=== PATIENT | female | born 1930 | race Caucasian/White ===

== ENCOUNTER 2017-11-09 19:57 | Observation (INO) | payer MEDICARE, BC ==
[2017-11-09] MEDS ORDERED: Ondansetron 4 MG/2 ML SDV IVPUSH ONE (20:56)
[2017-11-09] MEDS ORDERED: Sodium Chloride 0.9% 1,000 ML IV ONE (20:56)
--- NOTE | 2017-11-09 20:59 | EDM.PDOC ---
<May Thompson - Last Filed: 11/09/17 21:06> ED HPI GENERAL MEDICAL PROBLEM - General Chief Complaint: Gastrointestinal Problem Stated Complaint: VOMITING Time Seen by Provider: 11/09/17 20:50 Source of Information: Reports: Patient History Limitations: Reports: No Limitations - History of Present Illness INITIAL COMMENTS - FREE TEXT/NARRATIVE: HISTORY AND PHYSICAL: History of present illness: Patient comes to the emergency room complaining of nausea vomiting and diarrhea since early this afternoon. States that she worked out at [employer] this morning and ate lunch at the [employer]. About 1:30 this afternoon, 2 hours after eating, she started feeling nauseous and experiencing vomiting, and diarrhea later developed. She's not had fever or chills. She states that she feels poorly and is lacking energy. Has not eaten anything since this afternoon. She denies fever and chills. She had a cold a couple of weeks ago which completely resolved except a little fullness in her right ear. No runny nose sore throat or chest congestion. She is not coughing. She has no blood in her vomit or stools. Discomfort to her lower abdomen that feels like period cramps. Denies burning with urination and urinary frequency. No swelling to her feet or lower legs. She states that she is otherwise healthy. No history of heart attack or stroke. She has no other complaints or concerns at this time. She presents to the ER with her son. Is a good historian Review of systems: As per history of present illness and below otherwise all systems reviewed and negative. Past medical history: As per history of present illness and as reviewed below otherwise noncontributory. Surgical history: As per history of present illness and as reviewed below otherwise noncontributory. Social history: No reported history of drug or alcohol abuse. Family history: As per history of present illness and as reviewed below otherwise noncontributory. Physical exam: HEENT: Atraumatic, normocephalic. TMs are pearly bishop and without erythema bilaterally. Oral mucous membranes are pink but dry. Neck is supple no lymphadenopathy. Throat is clear. Lungs: Clear to auscultation, breath sounds equal bilaterally. No wheezing crackles or rales. Heart: S1S2, regular, negative for clicks, rubs, or JVD. Abdomen: Bowel sounds are normoactive throughout. Abdomen is soft and nondistended. She is tender over her suprapubic area. Soft, nondistended, nontender. Negative for masses guarding or rebound. She is tender over her low back. Pelvis: Stable nontender. Genitourinary: Deferred. Rectal: Deferred. Extremities: Hammertoe and varicosities to her feet present bilaterally. No swelling or cyanosis bilaterally. Neurovascular unremarkable. Neuro: Awake, alert, oriented. Motor and sensory unremarkable throughout. Exam nonfocal. Diagnostics: [CBC, CMP, UA, EKG] Therapeutics: [1 L normal saline at 125 miles per hour, Zofran 4 mg IV] Impression: [] Plan: [] Definitive disposition and diagnosis as appropriate pending reevaluation and review of above. - Related Data Allergies Allergy/AdvReac Type Severity Reaction Status Date / Time No Known Allergies Allergy Verified 08/23/15 09:24 Home Meds: Home Meds Verapamil HCl [Verapamil Sr] 120 mg PO ACBREAKFAST 11/18/14 [History] Multivitamin [Multivitamins] 1 cap PO DAILY 04/16/15 [History] Ubidecarenone [Co Q-10] 200 mg PO DAILY 04/16/15 [History] Dorzolamide HCl/Timolol Maleat [Dorzolamide-Timolol Eye Drops] 1 drop EYELF BID 08/23/15 [History] Travoprost [Travatan Z 0.004% Ophth Soln] 1 drop EYELF ASDIRECTED 08/23/15 [ History] Lutein/Minerals/Vit A,C & E [Ocuvite] 1 tab PO DAILY 08/24/15 [History] Past Medical History Other HEENT History: left eye bleeding Other Cardiovascular History: palpations Other Genitourinary History: History of annual UTI's Other OB/BYN History: hysterectomy Other Musculoskeletal History: Arthritic "wore out hip" RIGHT Hope to have it replaced this winter Other Oncologic History: Skin cancer treatment 20 yrs ago [place] "no reoccurence " Other Dermatologic History: History Acne Social & Family History - Tobacco Use Smoking Status *Q: Former Smoker Years of Tobacco use: 3 Second Hand Smoke Exposure: No - Alcohol Use Days Per Week of Alcohol Use: 0 - Recreational Drug Use Recreational Drug Use: No Drug Use in Last 12 Months: No Course - Vital Signs Last Recorded V/S: Last Vital Signs Temp 35.4 C 12/11/17 20:29 Pulse 83 11/09/17 20:29 Resp 16 11/09/17 20:29 BP 144/71 H 11/09/17 20:29 Pulse Ox 98 11/09/17 20:29 - Orders/Labs/Meds Orders: Active Orders 24 hr Category Date Time Status Patient Status [ADT] Stat ADT 11/09/17 23:32 Ordered EKG Documentation Completion [RC] STAT Care 11/09/17 20:47 Active Sodium Chloride 0.9% [Normal Saline] 1,000 ml Med 11/09/17 20:56 Active IV STAT Medication Orders Sodium Chloride (Normal Saline) 1,000 mls @ 125 mls/hr IV STAT ONE Stop: 11/10/17 04:55 Last Infusion: 11/09/17 22:30 Dose: 999 mls/hr Admin: 11/09/17 21:58 Dose: 125 mls/hr Labs: Laboratory Tests 11/09/17 11/09/17 11/09/17 Range/Units 21:50 21:50 22:55 WBC 11.54 H (4.0-11.0) K/uL RBC 4.52 (4.30-5.90) M/uL Hgb 13.6 (12.0-16.0) g/dL Hct 40.6 (36.0-46.0) % MCV 89.8 (80.0-98.0) fL MCH 30.1 (27.0-32.0) pg MCHC 33.5 (31.0-37.0) g/dL RDW Std Deviation 43.4 (28.0-62.0) fl RDW Coeff of Rodolfo 13 (11.0-15.0) % Plt Count 200 (150-400) K/uL MPV 9.30 (7.40-12.00) fL Add Manual Diff YES Neutrophils % (Manual) 83 H (48.0-80.0) % Band Neutrophils % 10 % Lymphocytes % (Manual) 4 L (16.0-40.0) % Monocytes % (Manual) 3 (0.0-15.0) % Nucleated RBC % 0.0 /100WBC Absolute Seg Neuts 9.6 H (1.4-5.7) Band Neutrophils # 1.2 Lymphocytes # (Manual) 0.5 L (0.6-2.4) Monocytes # (Manual) 0.3 (0.0-0.8) Nucleated RBCs # 0 K/uL Sodium 140 (136-146) mmol/L Potassium 3.9 (3.5-5.1) mmol/L Chloride 108 (98-110) mmol/L Carbon Dioxide 19 L (21-31) mmol/L BUN 33 H (6.0-23.0) mg/dL Creatinine 1.3 (0.6-1.5) mg/dL Est Cr Clr Drug Dosing 27.32 mL/min Estimated GFR (MDRD) 38.9 ml/min Glucose 187 H (60-110) mg/dL Calcium 9.0 (8.8-10.8) mg/dL Total Bilirubin 0.6 (0.1-1.5) mg/dL AST 15 (5-40) IU/L ALT 11 (8-54) IU/L Alkaline Phosphatase 56 (40-150) Total Protein 7.6 (6.0-8.0) g/dL Albumin 4.0 (3.4-4.8) g/dL Globulin 3.6 H (2.0-3.5) g/dL Albumin/Globulin Ratio 1.1 L (1.3-2.8) Urine Color YELLOW Urine Appearance CLEAR Urine pH 5.5 (5.0-8.0) Ur Specific [place] >= 1.030 (1.001-1.035) Urine Protein NEGATIVE (NEGATIVE) mg/dL Urine Glucose (UA) NEGATIVE (NEGATIVE) mg/dL Urine Ketones 15 H (NEGATIVE) mg/dL Urine Occult Blood NEGATIVE (NEGATIVE) Urine Nitrite NEGATIVE (NEGATIVE) Urine Bilirubin NEGATIVE (NEGATIVE) Urine Urobilinogen 0.2 (<2.0) EU/dL Ur Leukocyte Esterase TRACE (NEGATIVE) Urine RBC 0-2 (0-2/HPF) Urine WBC 0-1 (0-5/HPF) Ur Epithelial Cells FEW (NONE-FEW) Urine Bacteria FEW (NEGATIVE) Urinalysis Comment Meds: Medications Generic Name Dose Route Start Last Admin Trade Name Freq PRN Reason Stop Dose Admin Sodium Chloride 1,000 mls @ 125 mls/hr 11/09/17 20:56 11/09/17 22:30 Normal Saline IV 11/10/17 04:55 999 mls/hr STAT ONE Infusion Discontinued Medications Generic Name Dose Route Start Last Admin Trade Name Ari PRN Reason Stop Dose Admin Ondansetron HCl 4 mg 11/09/17 20:56 11/09/17 21:58 Zofran IVPUSH 11/09/17 20:57 4 mg ONETIME ONE Administration Departure - Departure Disposition: Refer to Observation Clinical Impression: Vomiting, Diarrhea, Dehydration - Discharge Information Referrals: Yobany Cabrera MD [Primary Care Provider] - Forms: ED Department Discharge - My Orders Last 24 Hours: My Active Orders 11/09/17 23:32 Patient Status [ADT] Stat - Assessment/Plan Last 24 Hours: My Active Orders 11/09/17 23:32 Patient Status [ADT] Stat <Barbara Gaxiola - Last Filed: 11/09/17 23:34> ED HPI GENERAL MEDICAL PROBLEM - History of Present Illness INITIAL COMMENTS - FREE TEXT/NARRATIVE: This is Dr. Gaxiola dictating an addendum note as I have assumed care of this case at 10 PM. I agree with history and physical as above and this may be all attributable to a food trigger to cause the nausea vomiting and diarrhea but her labs are concerning for an elevated BUN/creatinine and a specific gravity that is also elevated. Patient on my evaluation does not have any abdominal tenderness and I discussed with her and her family at bedside TESTING results. I've given her a fluid bolus and she has completed that which is enabled her to give the urine sample. She is no longer nauseated and I given her ice chips. I discussed with her observation admission due to her age and comorbidities and level of dehydration and she is agreeable. I will discuss this case with our hospitalist Dr. Sunshine [id number]: Case discussed with our hospitalist Dr. Sunshine who accepts the patient for observation admission. Impression: Vomiting and diarrhea with dehydration in the elderly patient ED ROS GENERAL - Review of Systems Review Of Systems: ROS reveals no pertinent complaints other than HPI. ED EXAM, GI/ABD - Physical Exam Exam: See Below (See dictation) Departure - Departure Time of Disposition: 23:34 Condition: Good - My Orders Last 24 Hours: My Active Orders 11/09/17 23:32 Patient Status [ADT] Stat - Assessment/Plan Last 24 Hours: My Active Orders 11/09/17 23:32 Patient Status [ADT] Stat
[2017-11-09] MEDS ORDERED: Non-Formulary Medication 1 Each (Travoprost [Travatan Z 0.004% Ophth Soln] 1 DROP) EYELF SCH (23:45)
[2017-11-09] MEDS ORDERED: Ondansetron 4 MG/2 ML SDV IVPUSH PRN (23:46)
[2017-11-09] MEDS ORDERED: Acetaminophen 325 MG Tab PO PRN (23:46)
[2017-11-10] MEDS ORDERED: Sodium Chloride 0.9% 1,000 ML IV SCH (01:00)
[2017-11-10] MEDS ORDERED: VERAPAMIL HCL 120 MG PO SCH (07:30)
--- NOTE | 2017-11-10 08:06 | PCM.HP ---
<Ivette Fairbanks - Last Filed: 11/10/17 10:43> H&P History of Present Illness - General Date of Service: 11/10/17 Admit Problem/Dx: Admission Diagnosis/Problem Admission Diagnosis/Problem Dehydration - History of Present Illness Initial Comments - Free Text/Narative: 86 yo female admitted for gastroenteritis. 86 Y/O female admitted for complaints of vomiting and diarrhea that started at approximately 3 pm yesterday afternoon. She ate at the [employer] for lunch around noon. She had salad, fish, fruit. When she got home, She reported feeling weak and had called her son to bring her to the hospital after she spoke with her daughter who is a nurse. She had worked out at [employer] in the morning and had a positive sick contact who had similar symptoms. [place] She stated she "sometimes" uses a cane when she walks to the barn in the mornings due to slippery conditions. Headache Pain Score (Numeric/FACES): 3 - Related Data Allergies/Adverse Reactions: Allergies Allergy/AdvReac Type Severity Reaction Status Date / Time No Known Allergies Allergy Verified 11/10/17 00:42 Home Medications: Home Meds Verapamil HCl [Verapamil Sr] 120 mg PO ACBREAKFAST 11/18/14 [History] Multivitamin [Multivitamins] 1 cap PO DAILY 04/16/15 [History] Ubidecarenone [Co Q-10] 200 mg PO DAILY 04/16/15 [History] Travoprost [Travatan Z 0.004% Ophth Soln] 1 drop EYELF BEDTIME 08/23/15 [History ] Lutein/Minerals/Vit A,C & E [Ocuvite] 1 tab PO DAILY 08/24/15 [History] Garlic [Garlique] 1 tab PO DAILY 11/10/17 [History] Past Medical History HEENT History: Reports: Macular Degeneration Other HEENT History: left eye bleeding Other Cardiovascular History: palpations Genitourinary History: Reports: UTI, Recurrent Other Genitourinary History: History of annual UTI's Other OB/BYN History: hysterectomy Musculoskeletal History: Reports: Arthritis, Other (See Below) Other Musculoskeletal History: Arthritic "wore out hip" RIGHT Hope to have it replaced this winter. injured ligaments medial right knee. Other Oncologic History: Skin cancer treatment 20 yrs ago [place] "no reoccurence " Other Dermatologic History: History Acne - Infectious Disease History Infectious Disease History: Reports: Chicken Pox, Measles - Past Surgical History Female Surgical History: Reports: Hysterectomy Musculoskeletal Surgical History: Reports: Hip Replacement Social & Family History - Family History Family Medical History: Noncontributory - Tobacco Use Smoking Status *Q: Former Smoker Years of Tobacco use: 5 Packs/Tins Daily: 0.2 Used Tobacco, but Quit: Yes Month Tobacco Last Used: 1955 Tobacco Use Comment: has not smoked since 1955 Second Hand Smoke Exposure: No - Caffeine Use Caffeine Use: Reports: None - Alcohol Use Days Per Week of Alcohol Use: 0 - Recreational Drug Use Recreational Drug Use: No Drug Use in Last 12 Months: No H&P Review of Systems - Review of Systems: Review Of Systems: See Below General: Reports: No Symptoms HEENT: Reports: No Symptoms Pulmonary: Reports: No Symptoms Cardiovascular: Reports: No Symptoms Gastrointestinal: Reports: Abdominal Pain (improved), Diarrhea Genitourinary: Reports: No Symptoms Musculoskeletal: Reports: No Symptoms Skin: Reports: No Symptoms Psychiatric: Reports: No Symptoms Neurological: Reports: No Symptoms Hematologic/Lymphatic: Reports: No Symptoms Immunologic: Reports: No Symptoms Exam - Exam Exam: See Below - Vital Signs Vital Signs: Last Vital Signs Temp 99.0 F 11/10/17 06:00 Pulse 66 11/10/17 06:00 Resp 19 11/10/17 06:00 BP 130/62 11/10/17 06:00 Pulse Ox 93 L 11/10/17 06:00 Weight: 66.996 kg - Exam General: Alert, Oriented HEENT: Conjunctiva Clear, EOMI Neck: Supple, Trachea Midline Lungs: Clear to Auscultation, Normal Respiratory Effort Cardiovascular: Regular Rate, Regular Rhythm GI/Abdominal Exam: Normal Bowel Sounds, Soft (Female) Exam: Other (external and internal hemorrhoids present with bright red blood. ) Rectal (Female) Exam: Bloody Stool, Hemorrhoids Back Exam: Normal Inspection Extremities: Normal Inspection Skin: Warm, Dry, Intact Neuro Extensive - Mental Status: Alert, Oriented x3, Normal Mood/Affect Psychiatric: Alert, Normal Affect, Normal Mood - Patient Data Lab Results Last 24 hrs: Laboratory Results - last 24 hr 11/10/17 11/10/17 Range/Units 05:06 05:06 WBC 6.82 (4.0-11.0) K/uL RBC 3.94 L (4.30-5.90) M/uL Hgb 11.7 L (12.0-16.0) g/dL Hct 35.6 L (36.0-46.0) % MCV 90.4 (80.0-98.0) fL MCH 29.7 (27.0-32.0) pg MCHC 32.9 (31.0-37.0) g/dL RDW Std Deviation 44.1 (28.0-62.0) fl RDW Coeff of Rodolfo 13 (11.0-15.0) % Plt Count 184 (150-400) K/uL MPV 9.40 (7.40-12.00) fL Neut % (Auto) 79.4 (48.0-80.0) % Lymph % (Auto) 12.8 L (16.0-40.0) % [place] % (Auto) 7.6 (0.0-15.0) % Eos % (Auto) 0.1 (0.0-7.0) % Baso % (Auto) 0.1 (0.0-1.5) % Neut # (Auto) 5.4 (1.4-5.7) K/uL Lymph # (Auto) 0.9 (0.6-2.4) K/uL [place] # (Auto) 0.5 (0.0-0.8) K/uL Eos # (Auto) 0.0 (0.0-0.7) K/uL Baso # (Auto) 0.0 (0.0-0.1) K/uL Nucleated RBC % 0.0 /100WBC Nucleated RBCs # 0 K/uL Sodium 142 (136-146) mmol/L Potassium 3.7 (3.5-5.1) mmol/L Chloride 114 H (98-110) mmol/L Carbon Dioxide 19 L (21-31) mmol/L BUN 30 H (6.0-23.0) mg/dL Creatinine 1.1 (0.6-1.5) mg/dL Est Cr Clr Drug Dosing 32.29 mL/min Estimated GFR (MDRD) 47.2 ml/min Glucose 114 H (60-110) mg/dL Calcium 8.0 L (8.8-10.8) mg/dL Result Diagrams: 11/10/17 05:06 11/10/17 05:06 *Q Meaningful Use (ADM) - VTE *Q VTE Criteria *Q: - Stroke *Q Stroke Criteria *Q: - AMI *Q AMI Criteria *Q: Problem List Initiated/Reviewed/Updated: Yes Orders Last 24hrs: Active Orders 24 hr Category Date Time Status Antiembolic Devices [RC] PER UNIT ROUTINE Care 11/09/17 23:48 Active Oxygen Therapy [RC] PRN Care 11/09/17 23:47 Active Up ad Beba [RC] ASDIRECTED Care 11/09/17 23:46 Active VTE/DVT Education [RC] PER UNIT ROUTINE Care 11/09/17 23:47 Active Vital Signs [RC] Q4H Care 11/09/17 23:47 Active Acetaminophen [Tylenol] Med 11/09/17 23:46 Active 650 mg PO Q4H PRN Dorzolamide/Timolol [Cosopt 2%-0.5% Ophth Soln] Med 11/10/17 09:00 Active 0 ml EYELF BID Ondansetron [Zofran] Med 11/09/17 23:46 Active 4 mg IVPUSH Q4H PRN Sodium Chloride 0.9% [Normal Saline] 1,000 ml Med 11/10/17 01:00 Active IV ASDIRECTED Travoprost [Travatan Z 0.004% Ophth Soln] Med 11/09/17 23:45 Active 1 drop EYELF ASDIRECTED Verapamil HCl [Verapamil Sr] Med 11/10/17 07:30 Active 120 mg PO ACBREAKFAST Sequential Compression Device [OM.PC] Per Unit Routine Oth 11/09/17 23:47 Ordered Resuscitation Status Routine Resus Stat 11/09/17 23:46 Ordered Medication Orders Acetaminophen (Tylenol) 650 mg PO Q4H PRN PRN Reason: Pain (Mild 1-3)/fever Dorzolamide/Timolol (Cosopt 2%-0.5% Ophth Soln) 0 ml EYELF BID DONNA Sodium Chloride (Normal Saline) 1,000 mls @ 100 mls/hr IV ASDIRECTED DONNA Last Admin: 11/10/17 02:20 Dose: 100 mls/hr Non-Formulary Medication (Travoprost [Travatan Z 0.004% Ophth Soln]) 1 drop EYELF ASDIRECTED DONNA Non-Formulary Medication (Verapamil Hcl [Verapamil Sr]) 120 mg PO ACBREAKFAST DONNA Ondansetron HCl (Zofran) 4 mg IVPUSH Q4H PRN PRN Reason: Nausea Assessment/Plan Comment:: 86 yo female admitted for gastroenteritis Abdominal pain: improved. Nausea: resolved Diarrhea: improving. There are bleeding hemorrhoids present. Diet tolerating full liquid diet. advance diet Discharge Summary 86 yo female admitted for gastroenteritis. She was hydrated with fluids. Her nausea and vomitting have subsided. She did not have elevated WBC or fever.She still some loose stools with BRBPR. There were internal and external hemorrhoids noted on physical exam. She is continue full liquid diet for another day then BRAT diet. She may use preparation H and tucks pads for hemorrhoids. She is to follow up PCP within a week. <Tyrell Sunshine - Last Filed: 11/11/17 21:50> H&P History of Present Illness - General Admit Problem/Dx: Admission Diagnosis/Problem Admission Diagnosis/Problem Dehydration Exam - Vital Signs Vital Signs: Last Vital Signs Temp 36.4 C 11/10/17 09:17 Pulse 67 11/10/17 09:17 Resp 16 11/10/17 09:17 BP 134/62 11/10/17 09:17 Pulse Ox 98 11/10/17 09:17 - Patient Data Result Diagrams: 11/10/17 05:06 11/10/17 05:06 *Q Meaningful Use (ADM) - VTE *Q VTE Criteria *Q: - Stroke *Q Stroke Criteria *Q: - AMI *Q AMI Criteria *Q: - Free Text/Narrative Note: I have examined the patient. I have discussed findings and treatment plan with resident. I agree with the assessment and plan outlined in the following resident's note.
[2017-11-10] MEDS ORDERED: Verapamil 240 MG Tab.ER PO SCH (08:53)
[2017-11-10] MEDS ORDERED: Dorzolamide/Timolol 2%-0.5% Ophth Soln 10 ML Bottle EYELF SCH (09:00)
[2017-11-10 09:18] VITALS: BP 134/62
[2017-11-10] MEDS ORDERED: Acetaminophen 325 MG Tab PO ONE (10:04)
== END 2017-11-10 11:23 | disposition home or self-care (01) ==
LOC: MW.ED 19:57 → MW.MS 23:32
PROVIDERS: ADMIT Internal Medicine; ATTEND Internal Medicine
DX: K52.9 Noninfective gastroenteritis and colitis, unspecified (principal); H35.30 Unspecified macular degeneration; M19.90 Unspecified osteoarthritis, unspecified site; K64.8 Other hemorrhoids; K64.4 Residual hemorrhoidal skin tags; Z79.899 Other long term (current) drug therapy; Z85.828 Personal history of other malignant neoplasm of skin; Z87.891 Personal history of nicotine dependence
CPT/HCPCS: 36415; 80048; 80053; 81001; 85025; 93005; 96361; 96374; 99285; A9270; G0378; J2405; J7040; 99283

== ENCOUNTER 2019-03-08 11:47 | Inpatient (IN) | payer MEDICARE, BC ==
--- NOTE | 2019-03-08 12:25 | EDM.PDOC ---
ED HPI GENERAL MEDICAL PROBLEM - General Chief Complaint: Neurological Problem Stated Complaint: AMB Time Seen by Provider: 03/08/19 12:09 Source of Information: Reports: Patient, EMS, Family, Other (Primary provider, Yobany Cabrera) History Limitations: Reports: Altered Mental Status - History of Present Illness INITIAL COMMENTS - FREE TEXT/NARRATIVE: Presents via EMS. She lives at an assisted living facility and the staff there noticed what they described as seizure activity and the patient became obtunded. By the time EMS arrived she was "post-ictal" but awake and responding verbally, albeit confused. 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 She is currently on dexamethasone with a dose increase due today. She is a DNR status. Her primary provider, Dr. Yobany Cabrera came over and visited with the patient and her family. - Related Data Allergies Allergy/AdvReac Type Severity Reaction Status Date / Time No Known Allergies Allergy Verified 11/10/17 00:42 Home Meds: Home Meds Verapamil HCl [Verapamil Sr] 120 mg PO ACBREAKFAST 11/18/14 [History] Travoprost [Travatan Z 0.004% Ophth Soln] 1 drop EYELF BEDTIME 08/23/15 [History ] Lutein/Minerals/Vit A,C & E [Ocuvite] 1 tab PO DAILY 08/24/15 [History] Dorzolamide HCl/Timolol Maleat [Dorzolamide-Timolol Eye Drops] 1 drop EYEBOTH BID 11/27/18 [History] Acetaminophen [Acetaminophen ER] 650 mg PO Q4H PRN 03/08/19 [History] Alum Hydrox/Mag Hydrox/Simeth [Maalox Advanced] 1 - 2 tbsp PO ASDIRECTED PRN 08/18 [History] Dexamethasone 4 mg PO DAILY 03/08/19 [History] Guiatussin 1 tsp PO Q4HR PRN 03/08/19 [History] L.acidoph,Paracasei, B.lactis [Probiotic] 1 cap PO DAILY 03/08/19 [History] Loperamide [Imodium] 4 mg PO ASDIRECTED PRN 03/08/19 [History] Magnesium Hydroxide [Milk of Magnesia] 30 ml PO ASDIRECTED PRN 03/08/19 [History ] Sertraline [Zoloft] 25 mg PO DAILY 04/09/19 [History] Past Medical History HEENT History: Reports: Macular Degeneration Other HEENT History: left eye bleeding Cardiovascular History: Reports: Hypertension Other Cardiovascular History: palpations Respiratory History: Reports: None Gastrointestinal History: Reports: None Genitourinary History: Reports: UTI, Recurrent Other Genitourinary History: History of annual UTI's Other [employer] History: hysterectomy Musculoskeletal History: Reports: Arthritis, Other (See Below) Other Musculoskeletal History: Arthritic "wore out hip" RIGHT Hope to have it replaced this winter. injured ligaments medial right knee. Neurological History: Reports: Headaches, Chronic, Other (See Below) Other Neuro History: brain tumor dx Psychiatric History: Reports: None Endocrine/Metabolic History: Reports: None Hematologic History: Reports: None Immunologic History: Reports: None Oncologic (Cancer) History: Reports: Brain Other Oncologic History: Skin cancer treatment 20 yrs ago [place] "no reoccurence " Other Dermatologic History: History Acne - Infectious Disease History Infectious Disease History: Reports: Chicken Pox, Measles - Past Surgical History Female Surgical History: Reports: Hysterectomy Musculoskeletal Surgical History: Reports: Hip Replacement Social & Family History - Family History Family Medical History: Noncontributory - Tobacco Use Smoking Status *Q: Never Smoker - Caffeine Use Caffeine Use: Reports: Coffee - Recreational Drug Use Recreational Drug Use: No - Living Situation & Occupation Living situation: Reports: , Alone ED ROS GENERAL - Review of Systems Review Of Systems: Unable To Obtain ED EXAM, NEURO - Physical Exam Exam: See Below Exam Limited By: Altered Mental Status General Appearance: Alert, No Apparent Distress Eye Exam: Bilateral Eye: PERRL Ears: Normal External Exam Nose: Normal Inspection Throat/Mouth: Normal Inspection Head Exam: Atraumatic, Normocephalic Neck: Normal Inspection Respiratory/Chest: No Respiratory Distress, Lungs Clear, Normal Breath Sounds Cardiovascular: Normal Peripheral Pulses, Regular Rate, Rhythm, No Murmur GI/Abdominal: Normal Bowel Sounds, Soft, No Distention Neurological: Alert, Other (Converses but does not follow verbal commands. Orientated 1.). No: Abnormal Sensation Back Exam: Normal Inspection Extremities: Normal Inspection Psychiatric: Flat Affect Skin Exam: Warm, Dry, Intact, Normal Color, No Rash EKG INTERPRETATION EKG Date: 03/08/19 Rhythm: NSR [place]: LAD-Left [place] Deviation P-Wave: Present QRS: Normal ST-T: Normal QT: Normal KS/PQ Interval: .21 Course - Vital Signs Last Recorded V/S: Last Vital Signs Temp 36.1 C 03/08/19 11:55 Pulse 81 03/08/19 11:55 Resp 20 03/08/19 11:55 BP 134/65 03/08/19 11:55 Pulse Ox 95 03/08/19 11:55 - Orders/Labs/Meds Orders: Active Orders 24 hr Category Date Time Status EKG Documentation Completion [RC] STAT Care 03/08/19 12:11 Ordered Departure - Departure Time of Disposition: 12:33 Disposition: Admitted As Inpatient 67 Condition: Fair Clinical Impression: Seizure Altered mental status Qualifiers: Altered mental status type: unspecified Qualified Code(s): R41.82 - Altered mental status, unspecified - Discharge Information Referrals: PCP,Unknown [Primary Care Provider] - - My Orders Last 24 Hours: My Active Orders 03/08/19 12:11 EKG Documentation Completion [RC] STAT - Assessment/Plan Last 24 Hours: My Active Orders 03/08/19 12:11 EKG Documentation Completion [RC] STAT
--- NOTE | 2019-03-08 12:46 | PCM.HP ---
Addendum entered and electronically signed by Mary Michelle DISBURSING AGENT 03/08/19 16:13 : BMP at baseline, leukocytosis noted, likely related to Dexamethasone use. UA negative and no other signs of infection. Original Note: <Mary Michelle - Last Filed: 03/08/19 15:22> H&P History of Present Illness - General Date of Service: 03/08/19 Admit Problem/Dx: Admission Diagnosis/Problem Admission Diagnosis/Problem Seizure Source of Information: Patient, Family (son, Jose at bedside), Old Records - History of Present Illness Initial Comments - Free Text/Narative: This 88 year old female with pmh of HTN, most recently diagnosed with brain tumor with increasing gait instability and memory concerns. She lives at [facility], she was found on the floor in the bathroom, alert but rambling. She was helped to her feet and walked to the chair with assistance. She then started having seizure like activity, this last about 2 minutes. She was brought to the ED via EMS. Once in the ED, she appeared to be in a post-ictal phase. Dr. Gupta and I spoke with son, Jose. He reports initially upon arrival to the ED she did not recognize him, but as time has gone on she now recognizes him. He feels she is near her baseline memory and alertness. Dorcas does not know what happened this morning. She denies pain. She reports worsening vision, which her son reports has been happening and had spoke with Dr Cabrera, PCP, recently who today was increasing her Dexamethasone doseage. She has been on Dexamethasone since December. She has been having increasing instability likely secondary to worsening of brain tumor and possibly vision concerns. No labwork/imaging obtained in ED. Will obtain basic lab work and UA now. I spoke with Dr Cabrera PCP, who recommended increasing Dexamethasone to 8 mg daily. We also discussed seizure medication, which he would prefer to start in hopes this will help. She will be admitted with new onset seizures, secondary to likely worsening of edema/ brain tumor and AMS. PCP, Dr Cabrera. - Related Data Allergies/Adverse Reactions: Allergies Allergy/AdvReac Type Severity Reaction Status Date / Time No Known Allergies Allergy Verified 11/10/17 00:42 Home Medications: Home Meds Verapamil HCl [Verapamil Sr] 120 mg PO ACBREAKFAST 11/18/14 [History] Travoprost [Travatan Z 0.004% Ophth Soln] 1 drop EYELF BEDTIME 08/23/15 [History ] Lutein/Minerals/Vit A,C & E [Ocuvite] 1 tab PO DAILY 08/24/15 [History] Dorzolamide HCl/Timolol Maleat [Dorzolamide-Timolol Eye Drops] 1 drop EYEBOTH BID 11/27/18 [History] Acetaminophen [Acetaminophen ER] 650 mg PO Q4H PRN 03/08/19 [History] Alum Hydrox/Mag Hydrox/Simeth [Maalox Advanced] 1 - 2 tbsp PO ASDIRECTED PRN 08/18 [History] Dexamethasone 4 mg PO DAILY 03/08/19 [History] Guiatussin 1 tsp PO Q4HR PRN 03/08/19 [History] L.acidoph,Paracasei, B.lactis [Probiotic] 1 cap PO DAILY 03/08/19 [History] Loperamide [Imodium] 4 mg PO ASDIRECTED PRN 03/08/19 [History] Magnesium Hydroxide [Milk of Magnesia] 30 ml PO ASDIRECTED PRN 03/08/19 [History ] Sertraline [Zoloft] 25 mg PO DAILY 03/08/19 [History] Past Medical History HEENT History: Reports: Macular Degeneration Other HEENT History: left eye bleeding Cardiovascular History: Reports: Hypertension Other Cardiovascular History: Palpitations. Respiratory History: Reports: None. Denies: COPD Gastrointestinal History: Reports: None Genitourinary History: Reports: UTI, Recurrent Other OB/BYN History: hysterectomy Musculoskeletal History: Reports: Arthritis Neurological History: Reports: Headaches, Chronic, Other (See Below) Other Neuro History: brain tumor dx Psychiatric History: Reports: None Endocrine/Metabolic History: Reports: None. Denies: Diabetes, Type II Hematologic History: Reports: None Immunologic History: Reports: None Oncologic (Cancer) History: Reports: Brain Other Oncologic History: Skin cancer treatment 20 yrs ago [facility] "no reoccurence " Other Dermatologic History: History Acne - Infectious Disease History Infectious Disease History: Reports: Chicken Pox, Measles - Past Surgical History Female Surgical History: Reports: Hysterectomy Musculoskeletal Surgical History: Reports: Hip Replacement Social & Family History - Family History Family Medical History: Noncontributory - Tobacco Use Smoking Status *Q: Never Smoker - Caffeine Use Caffeine Use: Reports: Coffee - Recreational Drug Use Recreational Drug Use: No - Living Situation & Occupation Living situation: Reports: , Assisted Living H&P Review of Systems - Review of Systems: Review Of Systems: See Below General: Denies: Fever, Chills, Malaise HEENT: Reports: Visual Changes, Other (no pressure in head today). Denies: Headaches, Sinus Congestion, Vertigo Pulmonary: Denies: Shortness of Breath Cardiovascular: Denies: Chest Pain, Palpitations, Edema, Lightheadedness Gastrointestinal: Reports: No Symptoms. Denies: Abdominal Pain, Black Stool, Bloody Stool, Decreased Appetite, Nausea, Vomiting Genitourinary: Reports: No Symptoms. Denies: Dysuria, Frequency, Burning Musculoskeletal: Reports: No Symptoms. Denies: Neck Pain Skin: Reports: No Symptoms. Denies: Erythema, Wound Psychiatric: Reports: No Symptoms Neurological: Reports: Confusion (mixing up numbers and letters in words.) Hematologic/Lymphatic: Reports: No Symptoms Immunologic: Reports: No Symptoms Exam - Exam Exam: See Below - Vital Signs Vital Signs: Last Vital Signs Temp 97 F 03/08/19 11:55 Pulse 81 03/08/19 11:55 Resp 20 03/08/19 11:55 BP 134/65 03/08/19 11:55 Pulse Ox 95 03/08/19 11:55 Weight: 68 kg - Exam General: Alert. No: Oriented (x2, not to date time. has had trouble with number since dx of brain tumor.) HEENT: Conjunctiva Clear, Posterior Pharynx Clear, Pupils Equal, Pupils Reactive Neck: Supple Lungs: Clear to Auscultation, Normal Respiratory Effort Cardiovascular: Regular Rate, Regular Rhythm GI/Abdominal Exam: Normal Bowel Sounds, Soft, Non-Tender Back Exam: Normal Inspection, Full Range of Motion Extremities: Normal Inspection, Normal Range of Motion, Non-Tender Skin: Warm, Dry Neurological: Strength Equal Bilateral, Normal Speech. No: Normal Gait Neuro Extensive - Mental Status: Alert, Normal Mood/Affect, Disorientation to Time Neuro Extensive - Motor, Sensory, Reflexes: CN II-XII Intact (reports visual blurring worsening, family reports this is know to have been worsening.), Other. No: Normal Gait (unsteady due to vision changes), Facial palsy (L), Facial Palsy (R) Psychiatric: Alert, Normal Affect, Normal Mood. 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 (4) Vision abnormalities SNOMED Code(s): 7180678 ICD Code: H53.9 - UNSPECIFIED VISUAL DISTURBANCE Status: Chronic Current Visit: Yes (5) HTN (hypertension) SNOMED Code(s): 16228004 ICD Code: I10 - ESSENTIAL (PRIMARY) HYPERTENSION Status: Chronic Current Visit: Yes Qualifiers: Hypertension type: essential hypertension Qualified Code(s): I10 - Essential (primary) hypertension Problem List Initiated/Reviewed/Updated: Yes Orders Last 24hrs: Active Orders 24 hr Category Date Time Status Patient Status [ADT] Stat ADT 03/08/19 12:29 Active EKG Documentation Completion [RC] STAT Care 03/08/19 12:11 Active Assessment/Plan Comment:: This 88 year old female admitted with new onset seizures and AMS likely secondary to worsening brain tumor and edema 1. Seizures: Post ictal now and AMS has cleared, per family reports her at baseline now. Likely secondary to brain tumor. Will increase Dexamethasone and monitor improvement. WIll add Keppra 500 mg BID and monitor. Seizure precautions in place. Ativan PRN seizures. Consult PT to evaluate and treat due to increasing instability, may not change much due to progression of brain tumor. 2. Hx Tachycardia/HTN: stable, continue Verapamil. 3. Brain Tumor: suspicious for GBM, consider Hospice. Family will discuss VTE prophylaxis: SCDs Dispo: 2-3 days, pending placement or improvement in weakness. <Jose Gupta - Last Filed: 03/08/19 17:39> H&P History of Present Illness - General Admit Problem/Dx: Admission Diagnosis/Problem Admission Diagnosis/Problem Seizure - History of Present Illness Initial Comments - Free Text/Narative: I have seen and examined the patient independently of Mary Michelle CNP. I have discussed the case with her. I have reviewed and agreed with the plan of treatment as outlined for this patient by her. Please see orders. Exam - Vital Signs Vital Signs: Last Vital Signs Temp 36.9 C 03/08/19 13:55 Pulse 76 03/08/19 13:55 Resp 18 03/08/19 12:52 BP 151/72 H 03/08/19 13:55 Pulse Ox 95 03/08/19 13:55 - Patient Data Lab Results Last 24 hrs: Laboratory Results - last 24 hr 03/08/19 03/08/19 03/08/19 Range/Units 15:20 15:30 15:30 WBC 17.72 H (4.0-11.0) K/uL RBC 4.35 (4.30-5.90) M/uL Hgb 13.3 (12.0-16.0) g/dL Hct 39.1 (36.0-46.0) % MCV 89.9 (80.0-98.0) fL MCH 30.6 (27.0-32.0) pg MCHC 34.0 (31.0-37.0) g/dL RDW Std Deviation 47.2 (28.0-62.0) fl RDW Coeff of Rodolfo 14 (11.0-15.0) % Plt Count 135 L (150-400) K/uL MPV 8.70 (7.40-12.00) fL Neut % (Auto) 91.8 H (48.0-80.0) % Lymph % (Auto) 4.9 L (16.0-40.0) % [place] % (Auto) 3.2 (0.0-15.0) % Eos % (Auto) 0.0 (0.0-7.0) % Baso % (Auto) 0.1 (0.0-1.5) % Neut # (Auto) 16.3 H (1.4-5.7) K/uL Lymph # (Auto) 0.9 (0.6-2.4) K/uL [place] # (Auto) 0.6 (0.0-0.8) K/uL Eos # (Auto) 0.0 (0.0-0.7) K/uL Baso # (Auto) 0.0 (0.0-0.1) K/uL Nucleated RBC % 0.0 /100WBC Nucleated RBCs # 0 K/uL Sodium 133 L (136-145) mmol/L Potassium 4.2 (3.5-5.1) mmol/L Chloride 97 L (98-107) mmol/L Carbon Dioxide 23.3 (21.0-32.0) mmol/L BUN 30 H (7.0-18.0) mg/dL Creatinine 1.3 H (0.6-1.0) mg/dL Est Cr Clr Drug Dosing 25.22 mL/min Estimated GFR (MDRD) 38.7 ml/min Glucose 191 H (74-106) mg/dL Calcium 8.6 (8.5-10.1) mg/dL Urine Color YELLOW Urine Appearance CLEAR Urine pH 6.5 (5.0-8.0) Ur Specific [place] 1.015 (1.001-1.035) Urine Protein NEGATIVE (NEGATIVE) mg/dL Urine Glucose (UA) NEGATIVE (NEGATIVE) mg/dL Urine Ketones NEGATIVE (NEGATIVE) mg/dL Urine Occult Blood TRACE-INTACT H (NEGATIVE) Urine Nitrite NEGATIVE (NEGATIVE) Urine Bilirubin NEGATIVE (NEGATIVE) Urine Urobilinogen 0.2 (<2.0) EU/dL Ur Leukocyte Esterase TRACE H (NEGATIVE) Urine RBC 2-3 (0-2/HPF) Urine WBC 2-3 (0-5/HPF) Ur Epithelial Cells FEW (NONE-FEW) Urine Bacteria RARE (NEGATIVE) Result Diagrams: 03/08/19 15:30 03/08/19 15:30 Orders Last 24hrs: Active Orders 24 hr Category Date Time Status Patient Status [ADT] Stat ADT 03/08/19 12:29 Active Intake and Output [RC] Q12H Care 03/08/19 13:03 Active May Shower [RC] ASDIRECTED Care 03/08/19 13:02 Active Oxygen Therapy [RC] PRN Care 03/08/19 13:02 Active Up With Assistance [RC] ASDIRECTED Care 03/08/19 13:02 Active VTE/DVT Education [RC] PER UNIT ROUTINE Care 03/08/19 13:02 Active Vital Signs [RC] Q4H Care 03/08/19 13:02 Active Consult to Physical Therapy [PT Evaluation and Cons 03/08/19 15:18 Active Treatment] [CONS] Routine Regular Diet [DIET] Diet 03/08/19 Lunch Active CULTURE URINE [RM] Urgent Lab 03/08/19 15:20 Received Acetaminophen [Tylenol] Med 03/08/19 13:02 Active 650 mg PO Q4H PRN Acidophilus/Pectin, Marina Med 03/09/19 09:00 Active 1 tab PO DAILY Beta-Carotene(A) w/C & E/Min [Prosight] Med 03/09/19 09:00 Active 1 tab PO DAILY Dexamethasone Med 03/09/19 09:00 Active 8 mg PO DAILY LORazepam [Ativan] Med 03/08/19 13:02 Active 1 mg IV Q2H PRN Ondansetron [Zofran] Med 03/08/19 13:02 Active 4 mg IVPUSH Q4H PRN Patient's Own Medication [Ptom] Med 03/08/19 21:00 Active 0 each EYEBOTH BID Patient's Own Medication [Ptom] Med 03/08/19 21:00 Active 1 each EYELF BEDTIME Sertraline [Zoloft] Med 03/09/19 09:00 Active 25 mg PO DAILY Sodium Chloride 0.9% [Saline Flush] Med 03/08/19 13:02 Active 2.5 ml FLUSH ASDIRECTED PRN Verapamil [Calan SR] Med 03/09/19 07:30 Active 120 mg PO ACBREAKFAST levETIRAcetam [Keppra] Med 03/08/19 13:15 Active 500 mg PO BID Saline Lock Insert [OM.PC] Routine Oth 03/08/19 13:02 Ordered Resuscitation Status Routine Resus Stat 03/08/19 13:02 Ordered Medication Orders Acetaminophen (Tylenol) 650 mg PO Q4H PRN PRN Reason: Pain (mild 1-3) Acidophilus/Pectin (Acidophilus/Pectin, Marina) 1 tab PO DAILY DONNA Dexamethasone (Dexamethasone) 8 mg PO DAILY DONNA Levetiracetam (Keppra) 500 mg PO BID DONNA Last Admin: 03/08/19 14:39 Dose: 500 mg Lorazepam (Ativan) 1 mg IV Q2H PRN PRN Reason: seizures only Multivitamins/Minerals (Prosight) 1 tab PO DAILY DONNA Ondansetron HCl (Zofran) 4 mg IVPUSH Q4H PRN PRN Reason: Nausea Dorzolamide/Timolol 2%-0.5% Ophth Soln 10 Ml Bottle 0 each EYEBOTH BID DONNA Travatan Z 0.004% (Ophth Soln) 1 each EYELF BEDTIME DONNA Sertraline HCl (Zoloft) 25 mg PO DAILY DONNA Sodium Chloride (Saline Flush) 2.5 ml FLUSH ASDIRECTED PRN PRN Reason: Keep Vein Open Verapamil HCl (Calan Sr) 120 mg PO ACBREAKFAST DONNA
[2019-03-08] MEDS ORDERED: Acetaminophen 325 MG Tab PO PRN (13:02)
[2019-03-08] MEDS ORDERED: Sodium Chloride 0.9% 2.5 ML Syringe FLUSH PRN (13:02)
[2019-03-08] MEDS ORDERED: Ondansetron 4 MG/2 ML SDV IVPUSH PRN (13:02)
[2019-03-08] MEDS ORDERED: LORazepam 2 MG/ML SDV IV PRN (13:02)
[2019-03-08] MEDS ORDERED: Dexamethasone 4 MG Tab PO ONE (14:30)
[2019-03-08] MEDS ORDERED: Dexamethasone 4 MG Tab PO SCH (14:30)
[2019-03-08] MEDS: levETIRAcetam 500 MG Tab PO SCH ×2 (14:39→20:55)
[2019-03-08] MEDS: Dorzolamide/Timolol 2%-0.5% Ophth Soln 10 ML Bottle EYEBOTH SCH (21:00)
[2019-03-09] MEDS: Verapamil 240 MG Tab.ER PO SCH (07:46)
[2019-03-09] MEDS ORDERED: Verapamil 240 MG Tab.ER PO ONE (07:46)
--- NOTE | 2019-03-09 07:53 | PCM.PN ---
<Mary Michelle M - Last Filed: 03/09/19 09:23> - General Info Date of Service: 03/09/19 Admission Dx/Problem (Free Text): Admission Diagnosis/Problem Admission Diagnosis/Problem Seizure Subjective Update: Reports feeling better today. Vision has improved. No other pain or concerns. Sanjuanita, daughter at bedside. Functional Status: Reports: Pain Controlled, Tolerating Diet, Ambulating, Urinating - Review of Systems General: Reports: No Symptoms. Denies: Fever, Weakness, Fatigue HEENT: Reports: No Symptoms. Denies: Headaches, Sore Throat, Visual Changes Pulmonary: Reports: No Symptoms. Denies: Shortness of Breath, Cough, Sputum Cardiovascular: Denies: No Symptoms, Chest Pain Gastrointestinal: Reports: No Symptoms. Denies: Abdominal Pain, Nausea, Vomiting Genitourinary: Reports: No Symptoms. Denies: Dysuria, Frequency, Burning Musculoskeletal: Reports: No Symptoms Skin: Reports: No Symptoms Neurological: Reports: No Symptoms Psychiatric: Reports: No Symptoms - Patient Data Vitals - Most Recent: Last Vital Signs Temp 97.1 F 03/09/19 04:00 Pulse 60 03/09/19 04:00 Resp 16 03/09/19 04:00 BP 160/79 H 03/09/19 04:00 Pulse Ox 95 03/09/19 04:00 Weight - Most Recent: 68 kg I&O - Last 24 Hours: Intake & Output 03/08/19 03/09/19 03/09/19 22:59 06:59 14:59 Intake Total 400 Output Total 75 1900 Balance -75 -1500 Lab Results Last 24 Hours: Laboratory Results - last 24 hr 03/08/19 03/08/19 03/08/19 Range/Units 15:20 15:30 15:30 WBC 17.72 H (4.0-11.0) K/uL RBC 4.35 (4.30-5.90) M/uL Hgb 13.3 (12.0-16.0) g/dL Hct 39.1 (36.0-46.0) % MCV 89.9 (80.0-98.0) fL MCH 30.6 (27.0-32.0) pg MCHC 34.0 (31.0-37.0) g/dL RDW Std Deviation 47.2 (28.0-62.0) fl RDW Coeff of Rodolfo 14 (11.0-15.0) % Plt Count 135 L (150-400) K/uL MPV 8.70 (7.40-12.00) fL Neut % (Auto) 91.8 H (48.0-80.0) % Lymph % (Auto) 4.9 L (16.0-40.0) % Pershing % (Auto) 3.2 (0.0-15.0) % Eos % (Auto) 0.0 (0.0-7.0) % Baso % (Auto) 0.1 (0.0-1.5) % Neut # (Auto) 16.3 H (1.4-5.7) K/uL Lymph # (Auto) 0.9 (0.6-2.4) K/uL [place]hing # (Auto) 0.6 (0.0-0.8) K/uL Eos # (Auto) 0.0 (0.0-0.7) K/uL Baso # (Auto) 0.0 (0.0-0.1) K/uL Nucleated RBC % 0.0 /100WBC Nucleated RBCs # 0 K/uL Sodium 133 L (136-145) mmol/L Potassium 4.2 (3.5-5.1) mmol/L Chloride 97 L (98-107) mmol/L Carbon Dioxide 23.3 (21.0-32.0) mmol/L BUN 30 H (7.0-18.0) mg/dL Creatinine 1.3 H (0.6-1.0) mg/dL Est Cr Clr Drug Dosing 25.22 mL/min Estimated GFR (MDRD) 38.7 ml/min Glucose 191 H (74-106) mg/dL Calcium 8.6 (8.5-10.1) mg/dL Urine Color YELLOW Urine Appearance CLEAR Urine pH 6.5 (5.0-8.0) Ur Specific [place] 1.015 (1.001-1.035) Urine Protein NEGATIVE (NEGATIVE) mg/dL Urine Glucose (UA) NEGATIVE (NEGATIVE) mg/dL Urine Ketones NEGATIVE (NEGATIVE) mg/dL Urine Occult Blood TRACE-INTACT H (NEGATIVE) Urine Nitrite NEGATIVE (NEGATIVE) Urine Bilirubin NEGATIVE (NEGATIVE) Urine Urobilinogen 0.2 (<2.0) EU/dL Ur Leukocyte Esterase TRACE H (NEGATIVE) Urine RBC 2-3 (0-2/HPF) Urine WBC 2-3 (0-5/HPF) Ur Epithelial Cells FEW (NONE-FEW) Urine Bacteria RARE (NEGATIVE) Med Orders - Current: Current Medications Acetaminophen (Tylenol) 650 mg PO Q4H PRN PRN Reason: Pain (mild 1-3) Acidophilus/Pectin (Acidophilus/Pectin, [place]) 1 tab PO DAILY [facility] Dexamethasone (Dexamethasone) 8 mg PO DAILY [facility] Levetiracetam (Keppra) 500 mg PO BID [facility] Last Admin: 03/08/19 20:55 Dose: 500 mg Lorazepam (Ativan) 1 mg IV Q2H PRN PRN Reason: seizures only Multivitamins/Minerals (Prosight) 1 tab PO DAILY [facility] Ondansetron HCl (Zofran) 4 mg IVPUSH Q4H PRN PRN Reason: Nausea Dorzolamide/Timolol 2%-0.5% Ophth Soln 10 Ml Bottle 0 each EYEBOTH BID [facility] Last Admin: 03/08/19 21:00 Dose: Not Given Travatan Z 0.004% (Ophth Soln) 1 each EYELF BEDTIME [facility] Last Admin: 03/08/19 21:00 Dose: Not Given Sertraline HCl (Zoloft) 25 mg PO DAILY [facility] Sodium Chloride (Saline Flush) 2.5 ml FLUSH ASDIRECTED PRN PRN Reason: Keep Vein Open Verapamil HCl (Calan Sr) 120 mg PO ACBREAKFAST [facility] Last Admin: 03/09/19 07:46 Dose: 120 mg Discontinued Medications Dexamethasone (Dexamethasone) 8 mg PO DAILY [facility] Dexamethasone (Dexamethasone) 4 mg PO ONETIME ONE Stop: 03/08/19 14:31 Last Admin: 03/08/19 14:38 Dose: 4 mg - Exam General: Alert, Cooperative. No: Oriented Lungs: Clear to Auscultation, Normal Respiratory Effort Cardiovascular: Regular Rate, Regular Rhythm GI/Abdominal Exam: Normal Bowel Sounds, Soft, Non-Tender Extremities: Normal Inspection, Normal Range of Motion, Non-Tender, No Pedal Edema, Normal Capillary Refill Neurological: Normal Speech, Other (reports vision has improved with increased dose of steroids). No: Strength Equal Bilateral (slight weakness to R hand, some fine motor skills are tough for her to complete.) Psy/Mental Status: Alert, Normal Affect, Normal Mood - Problem List & Annotations (1) Seizure SNOMED Code(s): 65081427 Code(s): R56.9 - UNSPECIFIED CONVULSIONS Status: Acute Current Visit: Yes (2) Altered mental status SNOMED Code(s): 188150185 Code(s): R41.82 - ALTERED MENTAL STATUS, UNSPECIFIED Status: Acute Current Visit: Yes Qualifiers: Altered mental status type: disorientation Qualified Code(s): R41.0 - Disorientation, unspecified (3) Brain malignancy SNOMED Code(s): 046788380 Code(s): C71.9 - MALIGNANT NEOPLASM OF BRAIN, UNSPECIFIED Status: Chronic Current Visit: No Qualifiers: 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 (4) Vision abnormalities SNOMED Code(s): 3201684 Code(s): H53.9 - UNSPECIFIED VISUAL DISTURBANCE Status: Chronic Current Visit: Yes (5) HTN (hypertension) SNOMED Code(s): 00396811 Code(s): I10 - ESSENTIAL (PRIMARY) HYPERTENSION Status: Chronic Current Visit: Yes Qualifiers: Hypertension type: essential hypertension Qualified Code(s): I10 - Essential (primary) hypertension - Problem List Review Problem List Initiated/Reviewed/Updated: Yes - My Orders Last 24 Hours: My Active Orders 03/08/19 13:02 May Shower [RC] ASDIRECTED Oxygen Therapy [RC] PRN Up With Assistance [RC] ASDIRECTED VTE/DVT Education [RC] PER UNIT ROUTINE Vital Signs [RC] Q4H Acetaminophen [Tylenol] 650 mg PO Q4H PRN LORazepam [Ativan] 1 mg IV Q2H PRN Ondansetron [Zofran] 4 mg IVPUSH Q4H PRN Sodium Chloride 0.9% [Saline Flush] 2.5 ml FLUSH ASDIRECTED PRN Saline Lock Insert [OM.PC] Routine Resuscitation Status Routine 03/08/19 13:03 Intake and Output [RC] Q12H 03/08/19 13:15 levETIRAcetam [Keppra] 500 mg PO BID 03/08/19 15:18 Consult to Physical Therapy [PT Evaluation and Treatment] [CONS] Routine 03/08/19 15:20 CULTURE URINE [RM] Urgent 03/08/19 21:00 Patient's Own Medication [Ptom] 0 each EYEBOTH BID Patient's Own Medication [Ptom] 1 each EYELF BEDTIME 03/08/19 Lunch Regular Diet [DIET] 03/09/19 07:30 Verapamil [Calan SR] 120 mg PO ACBREAKFAST 03/09/19 09:00 Acidophilus/Pectin, [place] 1 tab PO DAILY Beta-Carotene(A) w/C & E/Min [Prosight] 1 tab PO DAILY Dexamethasone 8 mg PO DAILY Sertraline [Zoloft] 25 mg PO DAILY - Plan Plan:: This 88 year old female admitted with new onset seizures and AMS likely secondary to worsening brain tumor and edema 1. Seizures: No seizure activity overnight. Continue Dexamethasone 8 mg and Keppra 500 mg BID. Seizure precautions in place. Ativan PRN seizures. Consult PT to evaluate and treat due to increasing instability, may not change much due to progression of brain tumor. 2. Hx Tachycardia/HTN: stable, continue Verapamil. 3. Brain Tumor: suspicious for GBM, consider Hospice. Family will discuss VTE prophylaxis: SCDs Dispo: 1-2 days, daughter Sanjuanita is here today. reports she is here to stay with her mother now until she passes away. She is hoping she would be able to go back to [facility] and that she could move in with her mother and help with cares until she passes. They would like to speak with Hospice and feel this is a good option for them. Pending placement plans, potential for home tomorrow. <Jose Gupta - Last Filed: 03/09/19 12:44> - General Info Admission Dx/Problem (Free Text): Consider hospice care. I have seen and examined the patient independently of Mary Michelle CNP. I have discussed the case with her. I have reviewed and agreed with the plan of treatment as outlined for this patient by her. Please see orders. - Patient Data Vitals - Most Recent: Last Vital Signs Temp 36.6 C 03/09/19 11:58 Pulse 60 03/09/19 11:58 Resp 16 03/09/19 11:58 BP 117/55 L 03/09/19 11:58 Pulse Ox 95 03/09/19 11:58 I&O - Last 24 Hours: Intake & Output 03/08/19 03/09/19 03/09/19 22:59 06:59 14:59 Intake Total 400 Output Total 75 1900 Balance -75 -1500 Lab Results Last 24 Hours: Laboratory Results - last 24 hr 03/08/19 03/08/19 03/08/19 Range/Units 15:20 15:30 15:30 WBC 17.72 H (4.0-11.0) K/uL RBC 4.35 (4.30-5.90) M/uL Hgb 13.3 (12.0-16.0) g/dL Hct 39.1 (36.0-46.0) % MCV 89.9 (80.0-98.0) fL MCH 30.6 (27.0-32.0) pg MCHC 34.0 (31.0-37.0) g/dL RDW Std Deviation 47.2 (28.0-62.0) fl RDW Coeff of Rodolfo 14 (11.0-15.0) % Plt Count 135 L (150-400) K/uL MPV 8.70 (7.40-12.00) fL Neut % (Auto) 91.8 H (48.0-80.0) % Lymph % (Auto) 4.9 L (16.0-40.0) % Pershing % (Auto) 3.2 (0.0-15.0) % Eos % (Auto) 0.0 (0.0-7.0) % Baso % (Auto) 0.1 (0.0-1.5) % Neut # (Auto) 16.3 H (1.4-5.7) K/uL Lymph # (Auto) 0.9 (0.6-2.4) K/uL Pershing # (Auto) 0.6 (0.0-0.8) K/uL Eos # (Auto) 0.0 (0.0-0.7) K/uL Baso # (Auto) 0.0 (0.0-0.1) K/uL Nucleated RBC % 0.0 /100WBC Nucleated RBCs # 0 K/uL Sodium 133 L (136-145) mmol/L Potassium 4.2 (3.5-5.1) mmol/L Chloride 97 L (98-107) mmol/L Carbon Dioxide 23.3 (21.0-32.0) mmol/L BUN 30 H (7.0-18.0) mg/dL Creatinine 1.3 H (0.6-1.0) mg/dL Est Cr Clr Drug Dosing 25.22 mL/min Estimated GFR (MDRD) 38.7 ml/min Glucose 191 H (74-106) mg/dL Calcium 8.6 (8.5-10.1) mg/dL Urine Color YELLOW Urine Appearance CLEAR Urine pH 6.5 (5.0-8.0) Ur Specific [place] 1.015 (1.001-1.035) Urine Protein NEGATIVE (NEGATIVE) mg/dL Urine Glucose (UA) NEGATIVE (NEGATIVE) mg/dL Urine Ketones NEGATIVE (NEGATIVE) mg/dL Urine Occult Blood TRACE-INTACT H (NEGATIVE) Urine Nitrite NEGATIVE (NEGATIVE) Urine Bilirubin NEGATIVE (NEGATIVE) Urine Urobilinogen 0.2 (<2.0) EU/dL Ur Leukocyte Esterase TRACE H (NEGATIVE) Urine RBC 2-3 (0-2/HPF) Urine WBC 2-3 (0-5/HPF) Ur Epithelial Cells FEW (NONE-FEW) Urine Bacteria RARE (NEGATIVE) Med Orders - Current: Current Medications Acetaminophen (Tylenol) 650 mg PO Q4H PRN PRN Reason: Pain (mild 1-3) Acidophilus/Pectin (Acidophilus/Pectin, Reynolds) 1 tab PO DAILY [facility] Last Admin: 03/09/19 08:35 Dose: 1 tab Dexamethasone (Dexamethasone) 8 mg PO DAILY [facility] Last Admin: 03/09/19 08:35 Dose: 8 mg Levetiracetam (Keppra) 500 mg PO BID [facility] Last Admin: 03/09/19 08:37 Dose: 500 mg Lorazepam (Ativan) 1 mg IV Q2H PRN PRN Reason: seizures only Multivitamins/Minerals (Prosight) 1 tab PO DAILY [facility] Last Admin: 03/09/19 08:36 Dose: 1 tab Ondansetron HCl (Zofran) 4 mg IVPUSH Q4H PRN PRN Reason: Nausea Travatan Z 0.004% (Ophth Soln) 1 each EYELF BEDTIME [facility] Last Admin: 03/08/19 21:00 Dose: Not Given Dorzolamide 2% 0 each EYEBOTH BID [facility] Last Admin: 03/09/19 10:37 Dose: 1 each Timolol 0.5% 0 each EYEBOTH BID [facility] Last Admin: 03/09/19 10:37 Dose: 1 each Sertraline HCl (Zoloft) 25 mg PO DAILY [facility] Last Admin: 03/09/19 08:35 Dose: 25 mg Sodium Chloride (Saline Flush) 2.5 ml FLUSH ASDIRECTED PRN PRN Reason: Keep Vein Open Verapamil HCl (Calan Sr) 120 mg PO ACBREAKFAST [facility] Last Admin: 03/09/19 07:46 Dose: 120 mg Discontinued Medications Dexamethasone (Dexamethasone) 8 mg PO DAILY [facility] Dexamethasone (Dexamethasone) 4 mg PO ONETIME ONE Stop: 03/08/19 14:31 Last Admin: 03/08/19 14:38 Dose: 4 mg Dorzolamide/Timolol 2%-0.5% Ophth Soln 10 Ml Bottle 0 each EYEBOTH BID [facility] Last Admin: 03/08/19 21:00 Dose: Not Given - My Orders Last 24 Hours: My Active Orders 03/09/19 07:39 Consult to Hospice [CONS] Routine 03/09/19 10:30 Patient's Own Medication [Ptom] 0 each EYEBOTH BID
[2019-03-09] MEDS: Acidophilus with Citrus Pectin Tab PO SCH (08:35)
[2019-03-09] MEDS: Sertraline 25 MG Tab PO SCH (08:35)
[2019-03-09] MEDS: Dexamethasone 4 MG Tab PO SCH (08:35)
[2019-03-09] MEDS: Beta-Carotene (Vitamin A) w/Vitamin C & E plus Minerals Tab PO SCH (08:36)
[2019-03-09] MEDS: levETIRAcetam 500 MG Tab PO SCH ×2 (08:37→20:00)
[2019-03-09] MEDS: DORZOLAMIDE 2% EYEBOTH SCH ×2 (10:37→20:22)
[2019-03-09] MEDS: TIMOLOL 0.5% EYEBOTH SCH ×2 (10:37→20:22)
[2019-03-09] MEDS: Dorzolamide/Timolol 2%-0.5% Ophth Soln 10 ML Bottle EYEBOTH SCH (14:30)
[2019-03-09] MEDS: TRAVATAN Z 0.004% EYELF SCH (20:23)
[2019-03-10] MEDS ORDERED: Verapamil 240 MG Tab.ER PO ONE (07:27)
[2019-03-10] MEDS: Verapamil 240 MG Tab.ER PO SCH (07:27)
--- NOTE | 2019-03-10 08:48 | PCM.PN ---
<Mary Michelle M - Last Filed: 03/10/19 09:17> - General Info Date of Service: 03/10/19 Admission Dx/Problem (Free Text): Seizures Subjective Update: Reports feeling better today. Vision has improved. No other pain or concerns. Sitting in chair waiting for breakfast, reading food menu. Functional Status: Reports: Pain Controlled, Tolerating Diet, Urinating - Review of Systems General: Reports: No Symptoms. Denies: Fever, Weakness, Fatigue HEENT: Denies: Headaches, Visual Changes Pulmonary: Reports: No Symptoms. Denies: Shortness of Breath Cardiovascular: Reports: No Symptoms. Denies: Chest Pain Gastrointestinal: Reports: No Symptoms. Denies: Abdominal Pain, Nausea, Vomiting Musculoskeletal: Reports: No Symptoms. Denies: Neck Pain Neurological: Reports: No Symptoms Psychiatric: Reports: No Symptoms - Patient Data Vitals - Most Recent: Last Vital Signs Temp 98.3 F 03/10/19 07:55 Pulse 62 03/10/19 07:55 Resp 16 03/10/19 07:55 BP 160/105 H 03/10/19 07:55 Pulse Ox 94 L 03/10/19 07:55 Weight - Most Recent: 68 kg I&O - Last 24 Hours: Intake & Output 03/09/19 03/10/19 03/10/19 22:59 06:59 14:59 Intake Total 540 150 Output Total 300 650 Balance 240 -500 [place] Results Last 24 Hours: Microbiology 03/08/19 15:20 Urine Culture - Final Urine, Clean Catch MIXED JOSEY >100,000 CFU/ML Med Orders - Current: Current Medications Acetaminophen (Tylenol) 650 mg PO Q4H PRN PRN Reason: Pain (mild 1-3) Acidophilus/Pectin (Acidophilus/Pectin, [place]) 1 tab PO DAILY [facility] Last Admin: 03/09/19 08:35 Dose: 1 tab Dexamethasone (Dexamethasone) 8 mg PO DAILY [facility] Last Admin: 03/09/19 08:35 Dose: 8 mg Levetiracetam (Keppra) 500 mg PO BID [facility] Last Admin: 03/09/19 20:00 Dose: 500 mg Lorazepam (Ativan) 1 mg IV Q2H PRN PRN Reason: seizures only Multivitamins/Minerals (Prosight) 1 tab PO DAILY [facility] Last Admin: 03/09/19 08:36 Dose: 1 tab Ondansetron HCl (Zofran) 4 mg IVPUSH Q4H PRN PRN Reason: Nausea Dorzolamide 2% Own (Med) 0 each EYEBOTH BID [facility] Last Admin: 03/09/19 20:22 Dose: 1 each Timolol 0.5% Own (Med) 0 each EYEBOTH BID [facility] Last Admin: 03/09/19 20:22 Dose: 1 each Travatan Z 0.004% Ophth Soln Own Med 0 each EYELF BEDTIME [facility] Last Admin: 03/09/19 20:23 Dose: Not Given Sertraline HCl (Zoloft) 25 mg PO DAILY [facility] Last Admin: 03/09/19 08:35 Dose: 25 mg Sodium Chloride (Saline Flush) 2.5 ml FLUSH ASDIRECTED PRN PRN Reason: Keep Vein Open Verapamil HCl (Calan Sr) 120 mg PO ACBREAKFAST [facility] Last Admin: 03/10/19 07:27 Dose: 120 mg Discontinued Medications Dexamethasone (Dexamethasone) 8 mg PO DAILY [facility] Dexamethasone (Dexamethasone) 4 mg PO ONETIME ONE Stop: 03/08/19 14:31 Last Admin: 03/08/19 14:38 Dose: 4 mg Dorzolamide/Timolol 2%-0.5% Ophth Soln 10 Ml Bottle 0 each EYEBOTH BID [facility] Last Admin: 03/09/19 14:30 Dose: Not Given Travatan Z 0.004% (Ophth Soln) 1 each EYELF BEDTIME [facility] Last Admin: 03/09/19 20:20 Dose: 1 each - Exam General: Alert, Cooperative, No Acute Distress. No: Oriented Lungs: Clear to Auscultation, Normal Respiratory Effort Cardiovascular: Regular Rate, Regular Rhythm GI/Abdominal Exam: Normal Bowel Sounds, Soft, Non-Tender Back Exam: Normal Inspection Extremities: Normal Inspection, Normal Range of Motion, Non-Tender, No Pedal Edema Neurological: No New Focal Deficit Psy/Mental Status: Alert, Normal Affect, Normal Mood - Problem List & Annotations (1) Seizure SNOMED Code(s): 14751537 Code(s): R56.9 - UNSPECIFIED CONVULSIONS Status: Acute Current Visit: Yes (2) Altered mental status SNOMED Code(s): 555448368 Code(s): R41.82 - ALTERED MENTAL STATUS, UNSPECIFIED Status: Acute Current Visit: Yes Qualifiers: Altered mental status type: disorientation Qualified Code(s): R41.0 - Disorientation, unspecified (3) Brain malignancy SNOMED Code(s): 231084963 Code(s): C71.9 - MALIGNANT NEOPLASM OF BRAIN, UNSPECIFIED Status: Chronic Current Visit: No Qualifiers: 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 (4) Vision abnormalities SNOMED Code(s): 3183280 Code(s): H53.9 - UNSPECIFIED VISUAL DISTURBANCE Status: Chronic Current Visit: Yes (5) HTN (hypertension) SNOMED Code(s): 79821723 Code(s): I10 - ESSENTIAL (PRIMARY) HYPERTENSION Status: Chronic Current Visit: Yes Qualifiers: Hypertension type: essential hypertension Qualified Code(s): I10 - Essential (primary) hypertension - Problem List Review Problem List Initiated/Reviewed/Updated: Yes - My Orders Last 24 Hours: My Active Orders 03/09/19 09:00 Acidophilus/Pectin, [place] 1 tab PO DAILY Beta-Carotene(A) w/C & E/Min [Prosight] 1 tab PO DAILY Dexamethasone 8 mg PO DAILY Sertraline [Zoloft] 25 mg PO DAILY 03/09/19 09:29 OT Evaluation and Treatment [CONS] Routine 03/09/19 10:30 Patient's Own Medication [Ptom] 0 each EYEBOTH BID 03/09/19 21:00 Patient's Own Medication [Ptom] 0 each EYELF BEDTIME - Plan Plan:: This 88 year old female admitted with new onset seizures and AMS likely secondary to worsening brain tumor and edema 1. Seizures: No seizure activity overnight. Continue Dexamethasone 8 mg and Keppra 500 mg BID. Seizure precautions in place. Ativan PRN seizures. Consult PT to evaluate and treat due to increasing instability. 2. Hx Tachycardia/HTN: stable, continue Verapamil. 3. Brain Tumor: suspicious for GBM, consider Hospice. Family will discuss VTE prophylaxis: SCDs Dispo: Family has decided transfer to [place] on comfort measures. Discharge to be tomorrow, 03/11 <Jose Gupta - Last Filed: 03/10/19 09:23> - General Info Admission Dx/Problem (Free Text): I have seen and examined the patient independently of Mary Michelle CNP. I have discussed the case with her. I have reviewed and agreed with the plan of treatment as outlined for this patient by her. Please see orders. Possibly home tomorrow. Doing better. - Patient Data Vitals - Most Recent: Last Vital Signs Temp 36.8 C 03/10/19 07:55 Pulse 62 03/10/19 07:55 Resp 16 03/10/19 07:55 BP 160/105 H 03/10/19 07:55 Pulse Ox 94 L 03/10/19 07:55 I&O - Last 24 Hours: Intake & Output 03/09/19 03/10/19 03/10/19 22:59 06:59 14:59 Intake Total 540 150 Output Total 300 650 Balance 240 -500 [place] Results Last 24 Hours: Microbiology 03/08/19 15:20 Urine Culture - Final Urine, Clean Catch MIXED JOSEY >100,000 CFU/ML Med Orders - Current: Current Medications Acetaminophen (Tylenol) 650 mg PO Q4H PRN PRN Reason: Pain (mild 1-3) Acidophilus/Pectin (Acidophilus/Pectin, [place]) 1 tab PO DAILY [facility] Last Admin: 03/09/19 08:35 Dose: 1 tab Dexamethasone (Dexamethasone) 8 mg PO DAILY [facility] Last Admin: 03/09/19 08:35 Dose: 8 mg Levetiracetam (Keppra) 500 mg PO BID [facility] Last Admin: 03/09/19 20:00 Dose: 500 mg Lorazepam (Ativan) 1 mg IV Q2H PRN PRN Reason: seizures only Multivitamins/Minerals (Prosight) 1 tab PO DAILY [facility] Last Admin: 03/09/19 08:36 Dose: 1 tab Ondansetron HCl (Zofran) 4 mg IVPUSH Q4H PRN PRN Reason: Nausea Dorzolamide 2% Own (Med) 0 each EYEBOTH BID [facility] Last Admin: 03/09/19 20:22 Dose: 1 each Timolol 0.5% Own (Med) 0 each EYEBOTH BID [facility] Last Admin: 03/09/19 20:22 Dose: 1 each Travatan Z 0.004% Ophth Soln Own Med 0 each EYELF BEDTIME [facility] Last Admin: 03/09/19 20:23 Dose: Not Given Sertraline HCl (Zoloft) 25 mg PO DAILY [facility] Last Admin: 03/09/19 08:35 Dose: 25 mg Sodium Chloride (Saline Flush) 2.5 ml FLUSH ASDIRECTED PRN PRN Reason: Keep Vein Open Verapamil HCl (Calan Sr) 120 mg PO ACBREAKFAST [facility] Last Admin: 03/10/19 07:27 Dose: 120 mg Discontinued Medications Dexamethasone (Dexamethasone) 8 mg PO DAILY [facility] Dexamethasone (Dexamethasone) 4 mg PO ONETIME ONE Stop: 03/08/19 14:31 Last Admin: 03/08/19 14:38 Dose: 4 mg Dorzolamide/Timolol 2%-0.5% Ophth Soln 10 Ml Bottle 0 each EYEBOTH BID [facility] Last Admin: 03/09/19 14:30 Dose: Not Given Travatan Z 0.004% (Ophth Soln) 1 each EYELF BEDTIME [facility] Last Admin: 03/09/19 20:20 Dose: 1 each - My Orders Last 24 Hours: My Active Orders 03/09/19 10:30 Patient's Own Medication [Ptom] 0 each EYEBOTH BID
[2019-03-10] MEDS: Acidophilus with Citrus Pectin Tab PO SCH (09:36)
[2019-03-10] MEDS: Dexamethasone 4 MG Tab PO SCH (09:37)
[2019-03-10] MEDS: Sertraline 25 MG Tab PO SCH (09:37)
[2019-03-10] MEDS: Beta-Carotene (Vitamin A) w/Vitamin C & E plus Minerals Tab PO SCH (09:37)
[2019-03-10] MEDS: levETIRAcetam 500 MG Tab PO SCH ×2 (09:38→20:48)
[2019-03-10] MEDS: DORZOLAMIDE 2% EYEBOTH SCH ×2 (09:39→20:47)
[2019-03-10] MEDS: TIMOLOL 0.5% EYEBOTH SCH ×2 (09:39→20:47)
[2019-03-10] MEDS: TRAVATAN Z 0.004% EYELF SCH (20:46)
[2019-03-11] MEDS: Verapamil 240 MG Tab.ER PO SCH (06:36)
--- NOTE | 2019-03-11 08:17 | PCM.DCSUM1 ---
Discharge Summary - Hospital Course Free Text/Narrative:: The patient was admitted secondary to seizure complicated by brain tumors. Diagnosis: Stroke: No - Discharge Data Discharge Date: 03/11/19 Discharge Disposition: DC/Tfer to SNF 03 Condition: Stable - Patient Summary/Data Consults: Consultations 03/08/19 15:18 Consult to Physical Therapy [PT Evaluation and Treatment] [CONS] Routine 03/09/19 07:39 Consult to Hospice [CONS] Routine 03/09/19 09:29 OT Evaluation and Treatment [CONS] Routine Hospital Course: The patient is an 88-year-old lady who had presented to the emergency department on March 08, 2019 secondary to seizure. The patient is currently living at [facility] and she was found on the floor alert but rambling and she was shaking. The patient was found to have seizure disorder and was in a postictal state. The patient has a known brain cancer and it was thought that the seizure disorder was secondary to worsening of cerebral edema from her previously noted brain tumor. Previously the patient said that she had been having worsening of her visual acuity. The patient was admitted to inpatient hospitalization for follow-up and she had her dexamethasone increased secondary to the cerebral edema. The patient is currently in a DO NOT INTUBATE/DO NOT RESUSCITATE category and she had been on comfort measures well at [facility]. With the use of steroids the patient had continued to slowly improve over the past several days. The patient was looking forward to [facility] in order to have further close monitoring. She did not have any seizure activity while in hospital. The patient's dexamethasone had been increased to 8 mg by mouth daily and she was also placed on Keppra 500 mg by mouth twice a day. The patient was noted to have leukocytosis at 17,000 which was secondary to the increase in her steroid increase. The patient's vital signs had remained stable during her course of hospitalization. She had no further seizure activity. The patient was appropriate for discharge to [facility]. She has been recommended to continue with her diet as tolerated. She is also to have activity as tolerated. The patient is to follow-up with her primary care physician with regards to her brain cancer and other medical issues. She is currently stable and she is appropriate for discharge and has been discharged to [facility] with the above recommendations. The patient also had been complaining of constipation and she also had been prescribed MiraLAX 17 g by mouth twice a day to help with the constipation. - Patient Instructions Diet: Regular Diet as Tolerated Activity: As Tolerated Showering/Bathing: May Shower Notify Provider of: Fever, Increased Pain, Swelling and Redness, Drainage, Nausea and/or Vomiting Other/Special Instructions: Comfort Measures - Discharge Plan *PRESCRIPTION DRUG MONITORING PROGRAM REVIEWED*: Not Applicable *COPY OF PRESCRIPTION DRUG MONITORING REPORT IN PATIENT MAGDALENA: Not Applicable Prescriptions/Med Rec: Acetaminophen 650 mg PO Q4H PRN #30 capsule PRN Reason: Pain Dexamethasone 8 mg PO DAILY #30 tablet levETIRAcetam [Keppra] 500 mg PO BID #30 tablet Home Medications: Home Meds Verapamil HCl [Verapamil Sr] 120 mg PO ACBREAKFAST 11/18/14 [History] Travoprost [Travatan Z 0.004% Ophth Soln] 1 drop EYELF BEDTIME 08/23/15 [History ] Lutein/Minerals/Vit A,C & E [Ocuvite] 1 tab PO DAILY 08/24/15 [History] Dorzolamide HCl/Timolol Maleat [Dorzolamide-Timolol Eye Drops] 1 drop EYEBOTH BID 11/27/18 [History] Alum Hydrox/Mag Hydrox/Simeth [Maalox Advanced] 1 - 2 tbsp PO ASDIRECTED PRN 08/18 [History] Guiatussin 1 tsp PO Q4HR PRN 03/08/19 [History] L.acidoph,Paracasei, B.lactis [Probiotic] 1 cap PO DAILY 03/08/19 [History] Loperamide [Imodium] 4 mg PO ASDIRECTED PRN 03/08/19 [History] Magnesium Hydroxide [Milk of Magnesia] 30 ml PO ASDIRECTED PRN 03/08/19 [History ] Sertraline [Zoloft] 25 mg PO DAILY 03/08/19 [History] Acetaminophen 650 mg PO Q4H PRN #30 capsule 03/10/19 [Rx] Dexamethasone 8 mg PO DAILY #30 tablet 03/10/19 [Rx] levETIRAcetam [Keppra] 500 mg PO BID #30 tablet 03/10/19 [Rx] Other Amb Orders: OT Evaluation and Treatment [CONS] Location: None Selected PT Evaluation and Treatment [CONS] Location: None Selected Oxygen Therapy Mode: Room Air Referrals: Sonu Hassan MD [Physician] - (see Dr. Hassan on next Kerv[facility] rounds) Yobany Cabrera MD [Physician] - - Discharge Summary/Plan Comment DC Time >30 min.: Yes - General Info Date of Service: 03/11/19 Admission Dx/Problem (Free Text: This 88 year old female with pmh of HTN, most recently diagnosed with brain tumor with increasing gait instability and memory concerns. She lives at [facility], she was found on the floor in the bathroom, alert but rambling. Subjective Update: Reports feeling better today. Vision has improved. No other pain or concerns. Sitting in chair waiting for breakfast, reading food menu. Functional Status: Reports: Pain Controlled - Review of Systems General: Reports: No Symptoms HEENT: Reports: No Symptoms Pulmonary: Reports: No Symptoms Cardiovascular: Reports: No Symptoms Gastrointestinal: Reports: No Symptoms Genitourinary: Reports: No Symptoms Musculoskeletal: Reports: No Symptoms Skin: Reports: No Symptoms Neurological: Reports: No Symptoms Psychiatric: Reports: No Symptoms - Patient Data Vitals - Most Recent: Last Vital Signs Temp 36.4 C 03/11/19 04:00 Pulse 69 03/11/19 04:00 Resp 17 03/11/19 04:00 BP 150/80 H 03/11/19 04:00 Pulse Ox 94 L 03/11/19 04:00 Weight - Most Recent: 68 kg I&O - Last 24 hours: Intake & Output 03/10/19 03/11/19 03/11/19 22:59 06:59 14:59 Intake Total 698 400 Output Total 600 650 Balance 98 -250 RIVERA Results - Last 24 hrs: Microbiology 03/08/19 15:20 Urine Culture - Final Urine, Clean Catch MIXED JOSEY >100,000 CFU/ML Med Orders - Current: Current Medications Acetaminophen (Tylenol) 650 mg PO Q4H PRN PRN Reason: Pain (mild 1-3) Acidophilus/Pectin (Acidophilus/Pectin, [place]) 1 tab PO DAILY [facility] Last Admin: 03/10/19 09:36 Dose: 1 tab Dexamethasone (Dexamethasone) 8 mg PO DAILY [facility] Last Admin: 03/10/19 09:37 Dose: 8 mg Levetiracetam (Keppra) 500 mg PO BID [facility] Last Admin: 03/10/19 20:48 Dose: 500 mg Lorazepam (Ativan) 1 mg IV Q2H PRN PRN Reason: seizures only Multivitamins/Minerals (Prosight) 1 tab PO DAILY [facility] Last Admin: 03/10/19 09:37 Dose: 1 tab Ondansetron HCl (Zofran) 4 mg IVPUSH Q4H PRN PRN Reason: Nausea Dorzolamide 2% Own (Med) 0 each EYEBOTH BID [facility] Last Admin: 03/10/19 20:47 Dose: 1 each Timolol 0.5% Own (Med) 0 each EYEBOTH BID [facility] Last Admin: 03/10/19 20:47 Dose: 1 each Travatan Z 0.004% Ophth Soln Own Med 0 each EYELF BEDTIME [facility] Last Admin: 03/10/19 20:46 Dose: 1 each Sertraline HCl (Zoloft) 25 mg PO DAILY [facility] Last Admin: 03/10/19 09:37 Dose: 25 mg Sodium Chloride (Saline Flush) 2.5 ml FLUSH ASDIRECTED PRN PRN Reason: Keep Vein Open Verapamil HCl (Calan Sr) 120 mg PO ACBREAKFAST [facility] Last Admin: 03/11/19 06:36 Dose: 120 mg Discontinued Medications Dexamethasone (Dexamethasone) 8 mg PO DAILY [facility] Dexamethasone (Dexamethasone) 4 mg PO ONETIME ONE Stop: 03/08/19 14:31 Last Admin: 03/08/19 14:38 Dose: 4 mg Dorzolamide/Timolol 2%-0.5% Ophth Soln 10 Ml Bottle 0 each EYEBOTH BID [facility] Last Admin: 03/09/19 14:30 Dose: Not Given Travatan Z 0.004% (Ophth Soln) 1 each EYELF BEDTIME [facility] Last Admin: 03/09/19 20:20 Dose: 1 each Verapamil HCl (Calan Sr) 120 mg PO .STK-MED ONE Stop: 03/09/19 07:47 Verapamil HCl (Calan Sr) 120 mg PO .STK-MED ONE Stop: 03/10/19 07:28 - Exam Quality Assessment: Denies: Supplemental Oxygen General: Reports: Alert, Oriented, Cooperative, No Acute Distress HEENT: Reports: Pupils Equal, Pupils Reactive, EOMI Neck: Reports: Supple, Trachea Midline Lungs: Reports: Clear to Auscultation, Normal Respiratory Effort Cardiovascular: Reports: Regular Rate, Regular Rhythm GI/Abdominal Exam: Normal Bowel Sounds, Soft, No Distention (Female) Exam: Deferred Rectal (Female) Exam: Deferred Back Exam: Denies: Normal Inspection (Kyphosis) Extremities: Normal Inspection, No Pedal Edema Skin: Reports: Warm, Dry, Intact Neurological: Reports: No New Focal Deficit Psy/Mental Status: Reports: Alert, Normal Affect
[2019-03-11 08:34] VITALS: BP 198/93
[2019-03-11] MEDS: Dexamethasone 4 MG Tab PO SCH (08:36)
[2019-03-11] MEDS: Sertraline 25 MG Tab PO SCH (08:36)
[2019-03-11] MEDS: Beta-Carotene (Vitamin A) w/Vitamin C & E plus Minerals Tab PO SCH (08:38)
[2019-03-11] MEDS: Acidophilus with Citrus Pectin Tab PO SCH (08:39)
[2019-03-11] MEDS: levETIRAcetam 500 MG Tab PO SCH (08:42)
[2019-03-11] MEDS: TIMOLOL 0.5% EYEBOTH SCH (08:44)
[2019-03-11] MEDS: DORZOLAMIDE 2% EYEBOTH SCH (08:44)
== END 2019-03-11 11:32 | DRG 54 ==
LOC: MW.ED 11:47 → MW.MS 12:53
PROVIDERS: ADMIT Internal Medicine; ATTEND Internal Medicine
DX: C71.9 Malignant neoplasm of brain, unspecified (principal); G93.6 Cerebral edema; R41.82 Altered mental status, unspecified; R56.9 Unspecified convulsions; K59.00 Constipation, unspecified; D72.829 Elevated white blood cell count, unspecified; T38.0X5A Adverse effect of glucocorticoids and synthetic analogues, initial encounter; D49.6 Neoplasm of unspecified behavior of brain; H35.30 Unspecified macular degeneration; M19.91 Primary osteoarthritis, unspecified site; G89.29 Other chronic pain; I10 Essential (primary) hypertension; M19.90 Unspecified osteoarthritis, unspecified site; Z66 Do not resuscitate; Z87.440 Personal history of urinary (tract) infections; Z90.710 Acquired absence of both cervix and uterus; Z85.828 Personal history of other malignant neoplasm of skin; Z79.899 Other long term (current) drug therapy; Z96.649 Presence of unspecified artificial hip joint
CPT/HCPCS: 36415; 80048; 81001; 85025; 87086; 93005; 97161-GP; 97530-GP; 99283; 99285-25; A9270-GY; J8540